=== PATIENT | female | born 1935 | race Caucasian/White ===

== ENCOUNTER 2017-08-05 10:57 | Emergency (ER) | payer MEDICARE, BC ==
--- NOTE | 2017-08-05 12:01 | EDM.PDOC ---
ED HPI GENERAL MEDICAL PROBLEM - General Chief Complaint: Neurological Problem Stated Complaint: DIZZY Time Seen by Provider: 08/05/17 11:29 Source of Information: Reports: Patient History Limitations: Reports: No Limitations - History of Present Illness INITIAL COMMENTS - FREE TEXT/NARRATIVE: Patient is a 82-year-old female who presents to the ED with a recent episode of dizziness while standing at the counter drinking a cup of coffee. Patient states she was looking down and abruptly moved to a different position. During that time experience sudden onset of dizziness that only lasted for a few seconds. She did not have the sensation she was going to fall or pass out. but did not pass out. She sat down and symptoms have not return. She's had no previous episodes of such. Upon admission to the ED she was peripherally fine with no symptoms. She states over the past 2 years has noticed that her balance has been a little more unsteady. 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 Currently again patient has no complaints. During this episode there is no vision changes, headache, nausea vomiting, difficulty swallowing, weakness to extremities, numbness or tingling, chest pain, SOB, or any additional complaints. Patient ambulated into the hospital on her own accord. She does have a history of hypertension and takes losartan. Has a history of hypothyroidism and takes levothyroxine. Takes ibuprofen intermittently along with a baby aspirin. - Related Data Allergies Allergy/AdvReac Type Severity Reaction Status Date / Time No Known Allergies Allergy Verified 08/05/17 11:07 Home Meds: Home Meds Cyanocobalamin (Vitamin B12) [Vitamin B12] 1,000 mcg PO DAILY 08/05/17 [History] Levothyroxine [Synthroid] 100 mcg PO ACBREAKFAST 08/05/17 [History] Losartan [Cozaar] 50 mg PO DAILY 08/05/17 [History] Past Medical History HEENT History: Reports: Cataract Cardiovascular History: Reports: Hypertension Gastrointestinal History: Reports: Chronic Constipation, GERD [employer] History: Reports: Endocrine/Metabolic History: Reports: Hypothyroidism Hematologic History: Reports: B12 Deficiency Other Hematologic History: from colon resection Oncologic (Cancer) History: Reports: Colon, Other (See Below) Other Oncologic History: colon polpy that was pre-cancerous - Past Surgical History GI Surgical History: Reports: Appendectomy, Other (See Below) Other GI Surgeries/Procedures: colon resection Female Surgical History: Reports: Hysterectomy, Oophorectomy Musculoskeletal Surgical History: Reports: Hip Replacement, Other (See Below) Other Musculoskeletal Surgeries/Procedures:: bilateral hip replacement Social & Family History - Tobacco Use Smoking Status *Q: Never Smoker Second Hand Smoke Exposure: No - Caffeine Use Caffeine Use: Reports: Coffee - Recreational Drug Use Recreational Drug Use: No ED ROS GENERAL - Review of Systems Review Of Systems: ROS reveals no pertinent complaints other than HPI. ED EXAM, DIZZINESS - Physical Exam Exam: See Below Exam Limited By: No Limitations General Appearance: Alert, WD/WN, No Apparent Distress Eye Exam: Bilateral Eye: EOMI, PERRL Nystagmus: No: worsens with head to L, worsens with head to R, reproducible, reversible, constant, short duration Ears: Normal External Exam, Normal Canal, Hearing Grossly Normal, Normal TMs Throat/Mouth: Normal Inspection, Normal Oropharynx, Normal Voice, No Airway Compromise Head Exam: Atraumatic, Normocephalic Neck: Normal Inspection, Supple, Non-Tender, Full Range of Motion. No: Carotid Bruit, Lymphadenopathy (L), Lymphadenopathy (R) Respiratory/Chest: No Respiratory Distress, Lungs Clear, Normal Breath Sounds, No Accessory Muscle Use, Chest Non-Tender Cardiovascular: Normal Peripheral Pulses, Regular Rate, Rhythm, No Murmur GI/Abdominal: Normal Bowel Sounds, Soft, Non-Tender, No Organomegaly, No Distention Neurological: Alert, Normal Mood/Affect, Normal Dorsiflexion, CN II-XII Intact, Normal Plantar Flexion, No Motor/Sensory Deficits, Oriented x 3, Other ( Cerebellar function intact. No facial droop, slurred speech, weakness discrepancy is to the upper and lower extremities, or sensory deficits noted.) Back Exam: Normal Inspection Extremities: Normal Inspection, Non-Tender, No Pedal Edema Psychiatric: Normal Affect, Normal Mood Skin Exam: Warm, Dry, Intact, Normal Color Course - Vital Signs Last Recorded V/S: Last Vital Signs Temp 98.5 F 08/05/17 13:59 Pulse 84 08/05/17 13:59 Resp 16 08/05/17 13:59 BP 149/93 H 08/05/17 13:59 Pulse Ox 97 08/05/17 13:59 Orthostatic Blood Pressure [ 157/97 Standing] Orthostatic Blood Pressure [ 169/102 Sitting] Orthostatic Blood Pressure [ 163/96 Supine] - Orders/Labs/Meds Orders: Active Orders 24 hr Category Date Time Status EKG Documentation Completion [RC] STAT Care 08/05/17 11:48 Active Labs: Laboratory Tests 08/05/17 08/05/17 08/05/17 Range/Units 12:39 12:39 13:00 WBC 4.78 (3.98-10.04) K/mm3 RBC 4.26 (3.98-5.22) M/mm3 Hgb 13.4 (11.2-15.7) gm/L Hct 40.5 (34.1-44.9) % MCV 95.1 H (79.4-94.8) fl MCH 31.5 (25.6-32.2) pg MCHC 33.1 (32.2-35.5) g/dl RDW Std Deviation 44.7 (36.4-46.3) fL Plt Count 195 (182-369) K/mm3 MPV 10.4 (9.4-12.3) fl Neut % (Auto) 78.0 H (34.0-71.1) % Lymph % (Auto) 12.8 L (19.3-51.7) % [place] % (Auto) 6.5 (4.7-12.5) % Eos % (Auto) 2.5 (0.7-5.8) Baso % (Auto) 0.2 (0.1-1.2) % Neut # (Auto) 3.73 (1.56-6.13) K/mm3 Lymph # (Auto) 0.61 L (1.18-3.74) K/mm3 [place] # (Auto) 0.31 (0.24-0.36) K/mm3 Eos # (Auto) 0.12 (0.04-0.36) K/mm3 Baso # (Auto) 0.01 (0.01-0.08) K/mm3 Sodium 142 (136-145) mEq/L Potassium 4.1 (3.5-5.1) mEq/L Chloride 106 (98-107) mEq/L Carbon Dioxide 27 (21-32) mEq/L Anion Gap 13.1 (5-15) BUN 11 (7-18) mg/dL Creatinine 0.7 (0.55-1.02) mg/dL Est Cr Clr Drug Dosing 47.12 mL/min Estimated GFR (MDRD) > 60 (>60) mL/min BUN/Creatinine Ratio 15.7 (14-18) Glucose 106 (83-115) mg/dL Calcium 9.4 (8.5-10.1) mg/dL Total Bilirubin 0.3 (0.2-1.0) mg/dL AST 15 (15-37) U/L ALT 23 (14-59) U/L Alkaline Phosphatase 76 (46-116) U/L Troponin I < 0.017 (0.00-0.056) ng/mL Total Protein 7.1 (6.4-8.2) g/dl Albumin 3.5 (3.4-5.0) g/dl Globulin 3.6 gm/dL Albumin/Globulin Ratio 1.0 (1-2) TSH 3rd Generation 2.848 (0.358-3.74) uIU/mL Urine Color Light yellow (Yellow) Urine Appearance Clear (Clear) Urine pH 7.0 (5.0-8.0) Ur Specific [place] 1.015 (1.005-1.030) Urine Protein Negative (Negative) Urine Glucose (UA) Negative (Negative) Urine Ketones Negative (Negative) Urine Occult Blood Negative (Negative) Urine Nitrite Negative (Negative) Urine Bilirubin Negative (Negative) Urine Urobilinogen 0.2 (0.2-1.0) Ur Leukocyte Esterase 1+ H (Negative) Urine RBC 0-5 (0-5) /hpf Urine WBC 0-5 (0-5) /hpf Ur Epithelial Cells 0-5 (0-5) /hpf Urine Bacteria Rare (FEW) /hpf Urine Mucus Not seen (FEW) /hpf - Re-Assessments/Exams Free Text/Narrative Re-Assessment/Exam: Labs obtained include CBC, chem 14, troponin, TSH, EKG, and UA. Labs reviewed: CBC, chem 14, troponin, TSH, UA did not reveal any concerning findings. Patient is been up and about to the bathroom with no issues. She is ready be discharged home discharge instructions as documented. Departure - Departure Time of Disposition: 14:04 Disposition: Home, Self-Care 01 Condition: Good Clinical Impression: Episode of dizziness - Discharge Information Instructions: Dizziness, [id number] Referrals: Umm Guillermo, [facility] [Primary Care Provider] - Forms: ED Department Discharge Additional Instructions: Unclear etiology of sudden onset of dizziness that was resolved over a few seconds. Labs, examination, EKG did not reveal any concerning findings. Continuation monitor for any worsening symptoms. See her PCP as needed next week for reevaluation. Return to the ED for any new or worsening symptoms as discussed. - My Orders Last 24 Hours: My Active Orders 08/05/17 11:48 EKG Documentation Completion [RC] STAT - Assessment/Plan Last 24 Hours: My Active Orders 08/05/17 11:48 EKG Documentation Completion [RC] STAT
== END 2017-08-05 14:05 | disposition home or self-care (01) ==
LOC: JD.ED 10:57
DX: R42 Dizziness and giddiness (principal); I10 Essential (primary) hypertension; K21.9 Gastro-esophageal reflux disease without esophagitis; E03.9 Hypothyroidism, unspecified; Z79.899 Other long term (current) drug therapy
CPT/HCPCS: 36415; 80053; 81001; 84443; 84484; 85025; 93005; 99284; 99284-25